=== PATIENT | female | born 1995 | race Caucasian/White ===

== ENCOUNTER 2017-12-04 05:00 | Emergency (ER) | payer SELFPAY ==
[~2017-12-04] VITALS: Ht 170.2 cm; Wt 82.7 kg
[2017-12-04 05:02] VITALS: BP 129/79
== END 2017-12-04 07:06 | disposition left against medical advice (07) ==
LOC: EMS 05:03
DX: M25.511 Pain in right shoulder (principal); Z53.21 Procedure and treatment not carried out due to patient leaving prior to being seen by health care provider